=== PATIENT | male | born 1950 | race American Indian/Alaskan Native ===

== ENCOUNTER 2017-05-02 11:16 | Emergency (ER) | payer MEDICARE ==
[2017-05-02 11:36] VITALS: BP 131/77
== END 2017-05-02 16:11 | disposition left against medical advice (07) ==
LOC: ED 11:16
DX: M79.605 Pain in left leg (principal); M79.604 Pain in right leg; Z53.21 Procedure and treatment not carried out due to patient leaving prior to being seen by health care provider